=== PATIENT | male | born 1975 | race Caucasian/White ===

== ENCOUNTER 2020-03-25 16:59 | Inpatient (IN) | payer OTHER ==
[2020-03-25 18:41] VITALS: BMI 33.2
--- NOTE | 2020-03-25 18:52 | BHS.RME ---
Substance Use & Tx History - Substance Use History Alcohol Substance amount: 1 pint vodka, and 12 packs of beer. Frequency of use: Daily Substance route: Oral Date of Last Use: 03/24/20 Cocaine- Powder Substance amount: 6-7 bags Frequency of use: Daily Substance route: Injection (ex: intravenous or skin popping) Date of Last Use: 03/25/20 Heroin Substance amount: 8 bags Frequency of use: Daily Substance route: Injection (ex: intravenous or skin popping) Date of Last Use: 03/25/20 (overdosed yesterday, on daily methadone maintenace dose.) - Last Treatment Date of last treatment: first time in detox Where was last treatment: Opioid Treatment Program (OTP) (Patient on daily maintenance Methadone dose of 90mg. Last medicated today.) CIWA Nausea/Vomitin Muscle Tremors: 3 Anxiety: 3 Agitation: 2 Paroxysmal Sweats: 2 Orientation: 2-Disoriented Date<2 days Tacttile Disturbances: 0-None Auditory Disturbances: 0-None Visual Disturbances: 0-None Headache: 0-None Present CIWA-Ar Total Score: 14
[2020-03-25] MEDS ORDERED: ACETAMINOPHEN 325 MG TABLET (FP) PO PRN ×2 (19:03)
[2020-03-25] MEDS ORDERED: chlordiazePOXIDE HCL 10 MG CAPSULE PO PRN (19:03)
[2020-03-25] MEDS ORDERED: MENTHOL/PHENOL 1 EACH UD MM PRN (19:03)
[2020-03-25] MEDS ORDERED: MAGNESIUM CITRATE 300 ML BOTTLE PO PRN (19:03)
[2020-03-25] MEDS ORDERED: BISMUTH SUBSALICYLATE 524 MG/30 ML UD PO PRN (19:03)
[2020-03-25] MEDS ORDERED: METHOCARBAMOL 500 MG TABLET PO PRN (19:03)
[2020-03-25] MEDS ORDERED: IBUPROFEN 400 MG TABLET (FP) PO PRN (19:03)
[2020-03-25] MEDS ORDERED: ONDANSETRON *ODT* 4 MG TABLET SL ONE (19:03)
[2020-03-25] MEDS ORDERED: MAGNESIUM HYDROX 2400MG/30ML ORAL SUSPENSION 30 ML CUP PO PRN (19:03)
[2020-03-25] MEDS ORDERED: NICOTINE POLACRILEX 2 MG GUM BUC PRN (19:03)
[2020-03-25] MEDS ORDERED: MAG HYDROX/AL HYDROX/SIMETH 30 ML UNIT-DOSE CUP PO PRN (19:03)
--- NOTE | 2020-03-25 19:09 | HP ---
CIWA Score Nausea/Vomitin Muscle Tremors: 3 Anxiety: 3 Agitation: 2 Paroxysmal Sweats: 2 Orientation: 2-Disoriented Date<2 days Tacttile Disturbances: 0-None Auditory Disturbances: 0-None Visual Disturbances: 0-None Headache: 0-None Present CIWA-Ar Total Score: 14 - Admission Criteria OASAS Guidelines: Admission for Medically Managed Detox: Requires at least one of the followin. CIWA greater than 12 2. Seizures within the past 24 hours 3. Delirium tremens within the past 24 hours 4. Hallucinations within the past 24 hours 5. Acute intervention needed for co occurring medical disorder 6. Acute intervention needed for co occurring psychiatric disorder 7. Severe withdrawal that cannot be handled at a lower level of care (continued vomiting, continued diarrhea, abnormal vital signs) requiring intravenous medication and/or fluids 8. Admitting History and Physical - Primary Care Physician PCP: none (no PCP) - Admission Chief Complaint: i want detox. History of Present Illness: Mr. Burgess is 45 y/o male with past medical history of alcohol, heroin, cocaine and nicotine use disorder. First in here in [facility] for alcohol detox. Started drinking since age 31. 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 Patient also uses up to 7 bags of cocaine (IV). Denies any significant medical problems. Has testicular surgery in childhood. History Source: Patient Limitations to Obtaining History: No Limitations - Past Surgical History Past Surgical History: Yes: None Additional Past Surgical History: testicular surgery in childhood. - Smoking History Smoking history: Current every day smoker Have you smoked in the past 12 months: Yes Aproximately how many cigarettes per day: 20 - Alcohol/Substance Use Hx Alcohol Use: Yes Number of Drinks Daily: 12 History of Substance Use: reports: Cocaine, Heroin Date of Last Use: 03/24/20 - Social History Usual Living Arrangement: Yes: Alone Do you think of yourself as: Straight/Heterosexual ADL: Independent History of Recent Travel: No Admission ROS [facility] Chief Complaint: I want detox. Allergies/Adverse Reactions: Allergies Allergy/AdvReac Type Severity Reaction Status Date / Time No Known Allergies Allergy Verified 03/25/20 18:50 History of Present Illness: Mr. Burgess is 45 y/o male with past medical history of alcohol, heroin, cocaine and nicotine use disorder. First in here in [facility] for alcohol detox. Started drinking since age 31. 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 Patient also uses up to 7 bags of cocaine (IV). Denies any significant medical problems. Has testicular surgery in childhood. Exam Limitations: No Limitations - Ebola screening Have you traveled outside of the country in the last 21 days: No Have you had contact with anyone from an Ebola affected area: No Have you been sick,other than usual withdrawal symptoms: No Do you have a fever: No - Review of Systems Constitutional: No Symptoms Reported EENT: reports: No Symptoms Reported Respiratory: reports: No Symptoms reported Cardiac: reports: No Symptoms Reported GI: reports: No Symptoms Reported : reports: No Symptoms Reported Musculoskeletal: reports: No Symptoms Reported Integumentary: reports: No Symptoms Reported Neuro: reports: No Symptoms reported Endocrine: reports: No Symptoms Reported Hematology: reports: No Symptoms Reported Psychiatric: reports: Agitated, Anxious, Disorientated Patient History - Patient Medical History Hx Asthma: No Hx Chronic Obstructive Pulmonary Disease (COPD): No Hx Cardiac Disorders: No Hx Hypertension: No Hx Seizures: No Hx Diabetes: No Hx Gastrointestinal Disorders: No Hx Genitourinary Disorders: No Hx Sexually Transmitted Disorders: No Hx Renal Disease (ESRD): No Hx Depression: Yes Hx Suicide Attempt: No Hx Schizophrenia: No - Patient Surgical History Past Surgical History: No Hx Neurologic Surgery: No Hx Cataract Extraction: No Hx Cardiac Surgery: No Hx Lung Surgery: No Hx Breast Surgery: No Hx Breast Biopsy: No Hx Abdominal Surgery: No Hx Appendectomy: No Hx Cholecystectomy: No Hx Genitourinary Surgery: No Hx Section: No Hx Orthopedic Surgery: No Anesthesia Reaction: No - PPD History Previous Implant?: Yes Documented Results: Negative w/o proof - Smoking Cessation Smoking history: Current some day smoker Have you smoked in the past 12 months: Yes Aproximately how many cigarettes per day: 20 Hx Chewing Tobacco Use: No Initiated information on smoking cessation: Yes 'Breaking Loose' booklet given: 03/25/20 - Substances abused Alcohol Substance route: Oral Frequency: Daily Amount used: wine- 1 liter Age of first use: 45 Date of last use: 03/24/20 Heroin Substance route: Injection Frequency: Daily Amount used: 6 bags Age of first use: 31 Date of last use: 03/24/20 Cocaine Substance route: Injection Frequency: Daily Amount used: 30 bags Age of first use: 49 Date of last use: 03/24/20 Admission Physical Exam BHS - Vital Signs Vital Signs: Vital Signs - 24 hr 03/25/20 18:33 Temperature 97.4 F L Pulse Rate 60 Respiratory 18 Rate Blood Pressure 98/61 Vital Signs 03/25/20 18:33 Temperature 97.4 F L Pulse Rate 60 Respiratory 18 Rate Blood Pressure 98/61 - Physical General Appearance: Yes: Within Normal Limits, Tremorous, Sweating, Anxious HEENTM: Yes: Within Normal Limits Respiratory: Yes: Within Normal Limits Neck: Yes: Within Normal Limits Breast: Yes: Within Normal Limits Cardiology: Yes: Within Normal Limits, Regular Rhythm, Regular Rate, S1, S2 Abdominal: Yes: Within Normal Limits, Normal Bowel Sounds, Soft Genitourinary: Yes: Within Normal Limits Musculoskeletal: Yes: Within Normal Limits Extremities: Yes: Within Normal Limits, Normal Range of Motion Neurological: Yes: Within Normal Limits, Alert Integumentary: Yes: Dry, Warm (Multiple track tello on both arms.) Lymphatic: Yes: Within Normal Limits - Addiitonal Findings: EKG showed sinus bradycardia at 54. - Diagnostic (1) Alcohol use disorder Current Visit: Yes Status: Acute Breathalyzer - Breathalyzer Breathalyzer: 0 Urine Drug Screen - Test Device Lot number: [id number] Expiration date: 04/29/22 - Control Is test valid?: No - Results Drug screen NEGATIVE: No Urine drug screen results: THC-Marijuana, RORY-Cocaine, FEN-Fentanyl, MOP- Opiates, MTD-Methadone Inpatient Rehab Admission - Rehab Decision to Admit Inpatient rehab admission?: No
[2020-03-25] MEDS: chlordiazePOXIDE HCL 25 MG CAPSULE PO SCH (22:16)
[2020-03-25] MEDS: hydrOXYzine PAMOATE 25 MG CAPSULE (FP) PO SCH (22:16)
[2020-03-25] MEDS: THIAMINE HCL 100 MG TABLET (FP) PO SCH (22:17)
[2020-03-25] MEDS: MELATONIN 5 MG TABLETS PO SCH (22:17)
[2020-03-26] MEDS: chlordiazePOXIDE HCL 25 MG CAPSULE PO SCH ×3 (05:41→21:07)
[2020-03-26] MEDS: hydrOXYzine PAMOATE 25 MG CAPSULE (FP) PO SCH ×5 (05:41→21:07)
--- NOTE | 2020-03-26 08:42 | PN ---
S CIWA - CIWA Score Nausea/Vomitin-Mild Nausea/No Vomiting Muscle Tremors: 3 Anxiety: 3 Agitation: 1-Slight > Activity Paroxysmal Sweats: 1-Minimal Palms Moist Orientation: 0-Oriented Tacttile Disturbances: 1-Very Mild Itch/Numbness Auditory Disturbances: 0-None Visual Disturbances: 0-None Headache: 0-None Present CIWA-Ar Total Score: 10 BHS Progress Note (SOAP) Subjective: 45 years old male admitted on 03/25/20 for alcohol withdrawal sx management treating with librium detox regiment mr andrews will received methadone 90mg po today around 10 am and begin tomorrow around 6 am tremor feeling tired general body aches ate breakfast in room resting in bed limited conversation with staff Objective: 03/26/20 11:45 Vital Signs - 24 hr 03/25/20 03/25/20 03/26/20 18:33 19:15 06:40 Temperature 97.4 F L 97.5 F L 97.5 F L Pulse Rate 60 67 51 L Respiratory 18 18 18 Rate Blood Pressure 98/61 105/70 102/63 O2 Sat by Pulse 99 99 Oximetry (%) 03/26/20 08:32 Temperature 97.8 F Pulse Rate 69 Respiratory 18 Rate Blood Pressure 92/56 L O2 Sat by Pulse Oximetry (%) 03/26/20 11:46 lab pending Assessment: 03/26/20 11:46 alcohol withdrawal methadone maintenance program 03/26/20 11:46 added to problem list Plan: librium regiment
[2020-03-26] MEDS ORDERED: METHADONE HCL 10 MG TABLET ONE (09:19)
[2020-03-26] MEDS ORDERED: METHADONE HCL 40 MG DISPERSABLE TABLET ONE (09:21)
--- NOTE | 2020-03-26 09:24 | EKG ---
Test Reason : Blood Pressure : / mmHG Vent. Rate : 056 BPM Atrial Rate : 056 BPM P-R Int : 170 ms QRS Dur : 090 ms QT Int : 436 ms P-R-T Axes : 052 065 037 degrees QTc Int : 420 ms SINUS BRADYCARDIA OTHERWISE NORMAL ECG NO PREVIOUS ECGS AVAILABLE Confirmed by MD JEROMY, ARA ([id number]) on 03/26/2020 9:24:19 AM Referred By: JORGE Confirmed By:ARA PINZON MD
[2020-03-26] MEDS ORDERED: METHADONE HCL 10 MG TABLET PO ONE (10:00)
[2020-03-26] MEDS ORDERED: METHADONE 80 MG, METHADONE 10 MG PO ONE (10:00)
[2020-03-26] MEDS: NICOTINE 7 MG/24 HOURS TOPICAL PATCH TD SCH (10:20)
[2020-03-26] MEDS: PRENATAL VITAMINS W/ FOLIC ACID TABLET (FP) PO SCH (10:21)
[2020-03-26] MEDS: THIAMINE HCL 100 MG TABLET (FP) PO SCH (21:07)
[2020-03-26] MEDS: MELATONIN 5 MG TABLETS PO SCH (21:07)
[2020-03-27] MEDS ORDERED: METHADONE HCL 10 MG TABLET ONE (04:51)
[2020-03-27] MEDS ORDERED: METHADONE HCL 40 MG DISPERSABLE TABLET ONE (04:51)
[2020-03-27] MEDS: chlordiazePOXIDE 5 MG CAPSULE PO SCH ×3 (05:28→21:00)
[2020-03-27] MEDS: METHADONE 80 MG, METHADONE 10 MG PO SCH (05:28)
[2020-03-27] MEDS: hydrOXYzine PAMOATE 25 MG CAPSULE (FP) PO SCH ×5 (05:28→21:04)
[2020-03-27] MEDS ORDERED: METHADONE HCL 10 MG TABLET PO SCH (06:00)
--- NOTE | 2020-03-27 09:37 | PN ---
S CIWA - CIWA Score Nausea/Vomitin-Mild Nausea/No Vomiting Muscle Tremors: 2 Anxiety: 2 Agitation: 2 Paroxysmal Sweats: No Perspiration Orientation: 0-Oriented Tacttile Disturbances: 1-Very Mild Itch/Numbness Auditory Disturbances: 0-None Visual Disturbances: 0-None Headache: 1-Very Mild CIWA-Ar Total Score: 9 S Progress Note (SOAP) Subjective: alert,irritable,anxious,interrupted sleep,tremor,aching pain in the body and back Objective: 03/27/20 09:36 Vital Signs Temperature 97.5 F L 03/27/20 08:35 Pulse Rate 55 L 03/27/20 08:35 Respiratory Rate 18 03/27/20 08:35 Blood Pressure 97/60 03/27/20 08:35 O2 Sat by Pulse Oximetry (%) 97 03/27/20 05:42 03/27/20 09:37 labs pending Assessment: 03/27/20 09:37 withdrawal symptom Plan: continue detox librium regimen,continue methadone maintenance 90 mgs po daily
[2020-03-27] MEDS: NICOTINE 7 MG/24 HOURS TOPICAL PATCH TD SCH (09:59)
[2020-03-27] MEDS: PRENATAL VITAMINS W/ FOLIC ACID TABLET (FP) PO SCH (09:59)
[2020-03-27 11:15] LABS: HEMATOCRIT 34.9 % (35.4-49); HEMOGLOBIN 11.1 GM/dL (11.7-16.9); MCH 26.1 pg (25.7-33.7); MCHC 31.7 g/dl (32.0-35.9); MEAN CELL VOLUME 82.4 fl (80-96); PLATELET COUNT 203 K/MM3 (134-434); RBC 4.24 M/mm3 (4.00-5.60); RDW 14.9 % (11.9-15.9); WHITE BLOOD COUNT 4.1 K/mm3 (4.0-10.0)
[2020-03-27 11:22] LABS: ALBUMIN 2.5 g/dl (3.4-5.0); BILIRUBIN,TOTAL 0.7 mg/dL (0.2-1); BLOOD UREA NITROGEN 12.9 mg/dL (7-18); CALCIUM 8.1 mg/dL (8.5-10.1); CREATININE 0.8 mg/dL (0.55-1.3); POTASSIUM 3.6 mmol/L (3.5-5.1); TOT PROT 5.5 g/dl (6.4-8.2)
[2020-03-27 14:58] LABS: EPI CELLS 29 /uL (0-25.1); HYALINE CASTS 8 /uL (0-3.1); PH,URINE 5.5 (5.0-8.0); URINE APPEARANCE CLEAR; URINE BACTERIA 11 /uL (0-1359); URINE BILIRUBIN 1+ (NEGATIVE); URINE COLOR DK YELLOW; URINE GLUCOSE (UA) NEGATIVE (NEGATIVE); URINE KETONE TRACE (NEGATIVE); URINE LEUK ESTERASE TRACE (NEGATIVE); URINE NITRITE NEGATIVE (NEGATIVE); URINE PROTEIN TRACE (NEGATIVE); URINE RBC 16 /uL (0-23.9); URINE WBC 33 /uL (0-25.8)
[2020-03-27 15:41] LABS: URINE CRYSTALS CA OXALATES /hpf
[2020-03-27] MEDS: THIAMINE HCL 100 MG TABLET (FP) PO SCH (21:04)
[2020-03-27] MEDS: MELATONIN 5 MG TABLETS PO SCH (21:04)
[2020-03-28] MEDS ORDERED: chlordiazePOXIDE HCL 10 MG CAPSULE PO PRN
[2020-03-28] MEDS ORDERED: METHADONE HCL 10 MG TABLET ONE (04:50)
[2020-03-28] MEDS ORDERED: METHADONE HCL 40 MG DISPERSABLE TABLET ONE (04:50)
[2020-03-28] MEDS: hydrOXYzine PAMOATE 25 MG CAPSULE (FP) PO SCH ×5 (05:23→22:28)
[2020-03-28] MEDS: METHADONE 80 MG, METHADONE 10 MG PO SCH (05:23)
[2020-03-28] MEDS: chlordiazePOXIDE HCL 10 MG CAPSULE PO SCH ×3 (05:23→22:29)
[2020-03-28] MEDS: PRENATAL VITAMINS W/ FOLIC ACID TABLET (FP) PO SCH (11:15)
[2020-03-28] MEDS: NICOTINE 7 MG/24 HOURS TOPICAL PATCH TD SCH (11:15)
--- NOTE | 2020-03-28 12:23 | PN ---
S CIWA - CIWA Score Nausea/Vomitin-No Nausea/No Vomiting Muscle Tremors: 1-None Visible, but [place] Anxiety: 1-Mildly Anxious Agitation: 0-Normal Activity Paroxysmal Sweats: No Perspiration Orientation: 0-Oriented Tacttile Disturbances: 0-None Auditory Disturbances: 0-None Visual Disturbances: 1-Very Mild Sensitivity Headache: 0-None Present CIWA-Ar Total Score: 3 BHS Progress Note (SOAP) Subjective: 45 years old male admitted on 03/25/20 for alcohol withdrawal sx management treating with librium detox regiment feeling better today less tremor discussing aftercare with staff mr andrews prefers [facility] for alcohol recovery Objective: 03/28/20 12:25 Vital Signs - 24 hr 03/27/20 03/27/20 03/27/20 12:38 16:30 20:41 Temperature 98.6 F 97.5 F L 97.7 F Pulse Rate 71 50 L 59 L Respiratory 20 18 18 Rate Blood Pressure 97/62 98/63 95/65 O2 Sat by Pulse 98 100 Oximetry (%) 03/28/20 03/28/20 06:29 08:52 Temperature 97.3 F L 97.5 F L Pulse Rate 66 63 Respiratory 18 18 Rate Blood Pressure 102/61 89/61 L O2 Sat by Pulse 97 Oximetry (%) Laboratory Tests 03/25/20 03/27/20 03/27/20 19:00 08:00 08:00 WBC 4.1 RBC 4.24 Hgb 11.1 L Hct 34.9 L MCV 82.4 MCH 26.1 MCHC 31.7 L RDW 14.9 Plt Count 203 MPV 10.0 Sodium Potassium Chloride Carbon Dioxide Anion Gap BUN Creatinine Est GFR (CKD-EPI)AfAm Est GFR (CKD-EPI)NonAf Random Glucose Calcium Total Bilirubin AST ALT Alkaline Phosphatase Total Protein Albumin Urine Color Urine Appearance Urine pH Ur Specific [place] Urine Protein Urine Glucose (UA) Urine Ketones Urine Blood Urine Nitrite Urine Bilirubin Urine Urobilinogen Ur Leukocyte Esterase Urine WBC (Auto) Urine RBC (Auto) Urine Casts (Auto) U Epithel Cells (Auto) Urine Crystals (Auto) Urine Bacteria (Auto) Syphilis Serology Non-reactive COVID-19 (ERIC) Not detected 03/27/20 03/27/20 08:30 10:50 WBC RBC Hgb Hct MCV MCH MCHC RDW Plt Count MPV Sodium 143 Potassium 3.6 Chloride 108 H Carbon Dioxide 28 Anion Gap 6 L BUN 12.9 Creatinine 0.8 Est GFR (CKD-EPI)AfAm 125.92 Est GFR (CKD-EPI)NonAf 108.65 Random Glucose 96 Calcium 8.1 L Total Bilirubin 0.7 AST 18 ALT 22 Alkaline Phosphatase 39 L Total Protein 5.5 L Albumin 2.5 L Urine Color Dk yellow Urine Appearance Clear Urine pH 5.5 Ur Specific [place] 1.035 Urine Protein Trace Urine Glucose (UA) Negative Urine Ketones Trace H Urine Blood Negative Urine Nitrite Negative Urine Bilirubin 1+ H Urine Urobilinogen 1.0 Ur Leukocyte Esterase Trace Urine WBC (Auto) 33 Urine RBC (Auto) 16 Urine Casts (Auto) 8 U Epithel Cells (Auto) 29 Urine Crystals (Auto) Ca oxalates Urine Bacteria (Auto) 11 Syphilis Serology COVID-19 (ERIC) 03/28/20 12:27 urine crystals + with rbc 16 Assessment: 03/28/20 12:27 alcohol withdrawal 03/28/20 12:28 rule out kidney stone Plan: librium regiment oral fluid
[2020-03-28] MEDS: MELATONIN 5 MG TABLETS PO SCH (22:28)
[2020-03-28] MEDS: THIAMINE HCL 100 MG TABLET (FP) PO SCH (22:28)
[2020-03-29] MEDS ORDERED: METHADONE HCL 10 MG TABLET ONE (03:15)
[2020-03-29] MEDS ORDERED: METHADONE HCL 40 MG DISPERSABLE TABLET ONE (03:16)
[2020-03-29] MEDS ORDERED: chlordiazePOXIDE HCL 10 MG CAPSULE PO ONE (05:00)
[2020-03-29] MEDS: METHADONE 80 MG, METHADONE 10 MG PO SCH (05:18)
[2020-03-29] MEDS: hydrOXYzine PAMOATE 25 MG CAPSULE (FP) PO SCH ×2 (05:18→09:41)
[2020-03-29 09:17] VITALS: BP 86/55; PULSE 57; TEMP 97.8
[2020-03-29] MEDS: PRENATAL VITAMINS W/ FOLIC ACID TABLET (FP) PO SCH (09:40)
[2020-03-29] MEDS: NICOTINE 7 MG/24 HOURS TOPICAL PATCH TD SCH (09:40)
--- NOTE | 2020-03-29 09:56 | PN ---
[facility] CIWA - CIWA Score Nausea/Vomitin-No Nausea/No Vomiting Muscle Tremors: None Anxiety: 1-Mildly Anxious Agitation: 0-Normal Activity Paroxysmal Sweats: No Perspiration Orientation: 0-Oriented Tacttile Disturbances: 0-None Auditory Disturbances: 0-None Visual Disturbances: 0-None Headache: 0-None Present CIWA-Ar Total Score: 1 S Progress Note (SOAP) Subjective: alert,no complaint Objective: 03/29/20 09:55 Vital Signs Temperature 97.8 F 03/29/20 08:48 Pulse Rate 57 L 03/29/20 08:48 Respiratory Rate 18 03/29/20 08:48 Blood Pressure 86/55 L 03/29/20 08:48 O2 Sat by Pulse Oximetry (%) 97 03/29/20 06:28 Assessment: 03/29/20 09:55 detox completed,no withdrawal symptom Plan: stable for discharge today,follow up with after care program as arrangement [facility]
--- NOTE | 2020-03-29 09:59 | DS ---
[facility] Detox Discharge Summary Admission Date: 03/25/20 Discharge Date: 03/29/20 - History Present History: Alcohol Dependence, Cocaine Dependence, Opioid Dependence, MMTP Additional Comments: alert,oriented x 3 ambulation on the unit lung clear bilaterally on auscultation abdomen soft,no distension,no pain detox completed,no withdrawal symptom stable for discharge today,follow up with [facility] total time spending on discharge 35 minutes Pertinent Past History: nicotine dependence - Physical Exam Results Vital Signs: Vital Signs Temperature 97.8 F 03/29/20 08:48 Pulse Rate 57 L 03/29/20 08:48 Respiratory Rate 18 03/29/20 08:48 Blood Pressure 86/55 L 03/29/20 08:48 O2 Sat by Pulse Oximetry (%) 97 03/29/20 06:28 Pertinent Admission Physical Exam Findings: withdrawal signs and symptom Vital Signs Temperature 97.8 F 03/29/20 08:48 Pulse Rate 57 L 03/29/20 08:48 Respiratory Rate 18 03/29/20 08:48 Blood Pressure 86/55 L 03/29/20 08:48 O2 Sat by Pulse Oximetry (%) 97 03/29/20 06:28 Laboratory Last Values WBC 4.1 K/mm3 (4.0-10.0) 03/27/20 08:00 RBC 4.24 M/mm3 (4.00-5.60) 03/27/20 08:00 Hgb 11.1 GM/dL (11.7-16.9) L 03/27/20 08:00 Hct 34.9 % (35.4-49) L 03/27/20 08:00 MCV 82.4 fl (80-96) 03/27/20 08:00 MCH 26.1 pg (25.7-33.7) 03/27/20 08:00 MCHC 31.7 g/dl (32.0-35.9) L 03/27/20 08:00 RDW 14.9 % (11.9-15.9) 03/27/20 08:00 Plt Count 203 K/MM3 (134-434) 03/27/20 08:00 MPV 10.0 fl (7.5-11.1) 03/27/20 08:00 Sodium 143 mmol/L (136-145) 03/27/20 08:30 Potassium 3.6 mmol/L (3.5-5.1) 03/27/20 08:30 Chloride 108 mmol/L (98-107) H 03/27/20 08:30 Carbon Dioxide 28 mmol/L (21-32) 03/27/20 08:30 Anion Gap 6 MMOL/L (8-16) L 03/27/20 08:30 BUN 12.9 mg/dL (7-18) 03/27/20 08:30 Creatinine 0.8 mg/dL (0.55-1.3) 03/27/20 08:30 Est GFR (CKD-EPI)AfAm 125.92 03/27/20 08:30 Est GFR (CKD-EPI)NonAf 108.65 03/27/20 08:30 Random Glucose 96 mg/dL (74-106) 03/27/20 08:30 Calcium 8.1 mg/dL (8.5-10.1) L 03/27/20 08:30 Total Bilirubin 0.7 mg/dL (0.2-1) 03/27/20 08:30 AST 18 U/L (15-37) 03/27/20 08:30 ALT 22 U/L (13-61) 03/27/20 08:30 Alkaline Phosphatase 39 U/L (45-117) L 03/27/20 08:30 Total Protein 5.5 g/dl (6.4-8.2) L 03/27/20 08:30 Albumin 2.5 g/dl (3.4-5.0) L 03/27/20 08:30 Urine Color Dk yellow 03/27/20 10:50 Urine Appearance Clear 03/27/20 10:50 Urine pH 5.5 (5.0-8.0) 03/27/20 10:50 Ur Specific [place] 1.035 (1.010-1.035) 03/27/20 10:50 Urine Protein Trace (NEGATIVE) 03/27/20 10:50 Urine Glucose (UA) Negative (NEGATIVE) 03/27/20 10:50 Urine Ketones Trace (NEGATIVE) H 03/27/20 10:50 Urine Blood Negative (NEGATIVE) 03/27/20 10:50 Urine Nitrite Negative (NEGATIVE) 03/27/20 10:50 Urine Bilirubin 1+ (NEGATIVE) H 03/27/20 10:50 Urine Urobilinogen 1.0 mg/dL (0.2-1.0) 03/27/20 10:50 Ur Leukocyte Esterase Trace (NEGATIVE) 03/27/20 10:50 Urine WBC (Auto) 33 /uL (0-25.8) 03/27/20 10:50 Urine RBC (Auto) 16 /uL (0-23.9) 03/27/20 10:50 Urine Casts (Auto) 8 /uL (0-3.1) 03/27/20 10:50 U Epithel Cells (Auto) 29 /uL (0-25.1) 03/27/20 10:50 Urine Crystals (Auto) Ca oxalates /hpf 03/27/20 10:50 Urine Bacteria (Auto) 11 /uL (0-1359) 03/27/20 10:50 Syphilis Serology Non-reactive (NONREACTIVE) 03/27/20 08:00 COVID-19 (ERIC) Not detected (Not Detected) 03/25/20 19:00 - Treatment Hospital Course: Detox Protocol Followed, Detoxed Safely, Responded well, Discharged Condition Good, Rehab Referral Accepted Patient has Accepted a Rehab Referral to: [facility] - Medication Discharge Medications: Ambulatory Orders NK [No Known Home Medication] 03/25/20 - Diagnosis (1) Alcohol dependence with uncomplicated withdrawal Current Visit: Yes Status: Acute (2) Cocaine dependence Current Visit: Yes Status: Acute (3) Methadone maintenance therapy patient Current Visit: Yes Status: Acute (4) Heroin abuse Current Visit: Yes Status: Acute (5) Nicotine dependence Current Visit: Yes Status: Acute - AMA Did Patient Leave Against Medical Advice: No
== END 2020-03-29 10:55 | disposition other institution (70) | DRG 773 ==
LOC: YASAS 16:59 → Y3N 18:58
PROVIDERS: ADMIT Allergy & Immunology; ATTEND Allergy & Immunology
PROC: HZ2ZZZZ Detoxification Services for Substance Abuse Treatment (ICD-10-PCS; principal; 2020-03-25)
DX: F10.230 Alcohol dependence with withdrawal, uncomplicated (principal); F11.20 Opioid dependence, uncomplicated; F14.20 Cocaine dependence, uncomplicated; F17.210 Nicotine dependence, cigarettes, uncomplicated; R82.998 Other abnormal findings in urine
CPT/HCPCS: 36415; 80053; 81003; 85027; 86780; 93005; 93010; Q0162; U0003

== ENCOUNTER 2020-03-29 11:11 | Inpatient (IN) | payer OTHER ==
[2020-03-29] MEDS ORDERED: PNEUMOC 13-VAL CONJ-DIP CRM/PF 0.5 ML DISP.SYRIN IM ONE (12:19)
[2020-03-29] MEDS ORDERED: MAGNESIUM HYDROX 2400MG/30ML ORAL SUSPENSION 30 ML CUP PO PRN (12:57)
[2020-03-29] MEDS ORDERED: MAGNESIUM CITRATE 300 ML BOTTLE PO PRN (12:57)
[2020-03-29] MEDS ORDERED: P-EPHED 60MG/TRIPROLIDI 2.5MG TABLET PO PRN (12:57)
[2020-03-29] MEDS ORDERED: guaiFENesin 200 MG/10 ML 10 ML UNIT-DOSE CUPS PO PRN (12:57)
[2020-03-29] MEDS ORDERED: MENTHOL/PHENOL 1 EACH UD MM PRN (12:57)
[2020-03-29] MEDS ORDERED: MAG HYDROX/AL HYDROX/SIMETH 30 ML UNIT-DOSE CUP PO PRN (12:57)
[2020-03-29] MEDS ORDERED: IBUPROFEN 400 MG TABLET (FP) PO PRN (12:57)
[2020-03-29] MEDS ORDERED: LOPERAMIDE HCL 2 MG CAPSULE PO PRN (12:57)
[2020-03-29] MEDS ORDERED: ACETAMINOPHEN 325 MG TABLET (FP) PO PRN (12:57)
--- NOTE | 2020-03-29 12:57 | HP ---
[facility] Rehab Assess/Revision - Admission History Admitted to Rehab from: [facility] Date of Admission to Rehab: 03/29/2020 - Vital signs Vital Signs: Vital Signs Period Temp Pulse Resp BP Sys/Nolen Pulse Ox Last 24 Hr 97.1 F 60 16 97/56 - Findings Detox History & Physical reviewed: Yes Concur with findings: Yes Comments/Additional Findings: for rehab as protocol Inpatient Rehab Admission - Rehab Decision to Admit Inpatient rehab admission?: Yes - Initial Determination Are CD services needed?: Yes Free of communicable disease: Yes Not in need of hospitalization: Yes - Rehab Admission Criteria Previous failed treatment: Yes Poor recovery environment: Yes Comorbidities: Yes Lacks judgement: No Patient is meeting Inpatient Rehab admission criteria:: Yes
[2020-03-29] MEDS: hydrOXYzine PAMOATE 25 MG CAPSULE (FP) PO SCH ×3 (14:03→21:19)
[2020-03-29] MEDS: THIAMINE HCL 100 MG TABLET (FP) PO SCH (21:19)
[2020-03-29] MEDS: MELATONIN 5 MG TABLETS PO SCH (21:19)
[2020-03-30] MEDS ORDERED: METHADONE HCL 10 MG TABLET ONE (05:40)
[2020-03-30] MEDS ORDERED: METHADONE HCL 40 MG DISPERSABLE TABLET ONE (05:40)
[2020-03-30] MEDS ORDERED: METHADONE HCL 40 MG DISPERSABLE TABLET PO SCH (06:00)
[2020-03-30] MEDS: hydrOXYzine PAMOATE 25 MG CAPSULE (FP) PO SCH ×5 (06:17→21:33)
[2020-03-30] MEDS: METHADONE 80 MG, METHADONE 10 MG PO SCH (06:17)
[2020-03-30] MEDS: NICOTINE 7 MG/24 HOURS TOPICAL PATCH TD SCH (09:55)
[2020-03-30] MEDS: PRENATAL VITAMINS W/ FOLIC ACID TABLET (FP) PO SCH (09:55)
[2020-03-30] MEDS ORDERED: PNEUMOCOCCAL 23 VACCINE 0.5 ML VIAL IM ONE (12:00)
[2020-03-30] MEDS ORDERED: PT OWN MED DRAWER 7, Y5N ONE (14:13)
[2020-03-30] MEDS: MELATONIN 5 MG TABLETS PO SCH (21:33)
[2020-03-30] MEDS: THIAMINE HCL 100 MG TABLET (FP) PO SCH (21:33)
[2020-03-31] MEDS ORDERED: METHADONE HCL 10 MG TABLET ONE (05:39)
[2020-03-31] MEDS ORDERED: METHADONE HCL 40 MG DISPERSABLE TABLET ONE (05:40)
[2020-03-31] MEDS: METHADONE 80 MG, METHADONE 10 MG PO SCH (06:08)
[2020-03-31] MEDS: hydrOXYzine PAMOATE 25 MG CAPSULE (FP) PO SCH ×5 (06:08→21:03)
[2020-03-31] MEDS: PRENATAL VITAMINS W/ FOLIC ACID TABLET (FP) PO SCH (09:52)
[2020-03-31] MEDS: NICOTINE 7 MG/24 HOURS TOPICAL PATCH TD SCH (09:52)
[2020-03-31] MEDS: THIAMINE HCL 100 MG TABLET (FP) PO SCH (21:03)
[2020-03-31] MEDS: MELATONIN 5 MG TABLETS PO SCH (21:03)
[2020-04-01] MEDS ORDERED: METHADONE HCL 40 MG DISPERSABLE TABLET ONE (03:09)
[2020-04-01] MEDS ORDERED: METHADONE HCL 10 MG TABLET ONE (03:09)
[2020-04-01] MEDS: hydrOXYzine PAMOATE 25 MG CAPSULE (FP) PO SCH ×5 (06:04→21:26)
[2020-04-01] MEDS: METHADONE 80 MG, METHADONE 10 MG PO SCH (06:04)
[2020-04-01] MEDS: NICOTINE 7 MG/24 HOURS TOPICAL PATCH TD SCH (09:51)
[2020-04-01] MEDS: PRENATAL VITAMINS W/ FOLIC ACID TABLET (FP) PO SCH (09:52)
[2020-04-01] MEDS: THIAMINE HCL 100 MG TABLET (FP) PO SCH (21:25)
[2020-04-01] MEDS: MELATONIN 5 MG TABLETS PO SCH (21:25)
[2020-04-02] MEDS ORDERED: METHADONE HCL 40 MG DISPERSABLE TABLET ONE (03:24)
[2020-04-02] MEDS ORDERED: METHADONE HCL 10 MG TABLET ONE (03:24)
[2020-04-02] MEDS: hydrOXYzine PAMOATE 25 MG CAPSULE (FP) PO SCH ×5 (06:23→21:04)
[2020-04-02] MEDS: METHADONE 80 MG, METHADONE 10 MG PO SCH (06:23)
[2020-04-02] MEDS: PRENATAL VITAMINS W/ FOLIC ACID TABLET (FP) PO SCH (10:14)
[2020-04-02] MEDS: NICOTINE 7 MG/24 HOURS TOPICAL PATCH TD SCH (10:14)
[2020-04-02] MEDS ORDERED: ACETAMINOPHEN 325 MG TABLET (FP) PO PRN ×2 (14:35→14:36)
--- NOTE | 2020-04-02 14:42 | PN ---
S Progress Note Note: Patient cc/o lower back pain. States it just started, denies injury. Took motrin with limited results. Found lying in bed on right side. Vital Signs Period Temp Pulse Resp BP Sys/Nolen Pulse Ox Last 24 Hr 97.6 F-98.2 F 58 18 113/68 95-97 P/E: General: appears to be in pain Neck: supple ABD: +BS, obese MSK: full weight bearing BACK: tender to palpation A/P Increased motrin added Lidoderm patch and muscle relaxant Will continue to monitor
[2020-04-02] MEDS: LIDOCAINE 5% TOPICAL PATCH TP SCH (15:01)
[2020-04-02] MEDS: METHOCARBAMOL 500 MG TABLET PO SCH ×2 (18:08→21:04)
[2020-04-02] MEDS: THIAMINE HCL 100 MG TABLET (FP) PO SCH (21:04)
[2020-04-02] MEDS: MELATONIN 5 MG TABLETS PO SCH (21:04)
[2020-04-02] MEDS: LIDOCAINE PATCH REMOVAL MC SCH (21:04)
[2020-04-02] MEDS: NICOTINE POLACRILEX 2 MG GUM BUC PRN (21:42)
[2020-04-03] MEDS ORDERED: METHADONE HCL 10 MG TABLET ONE (05:37)
[2020-04-03] MEDS ORDERED: METHADONE HCL 40 MG DISPERSABLE TABLET ONE (05:37)
[2020-04-03] MEDS: METHADONE 80 MG, METHADONE 10 MG PO SCH (05:59)
[2020-04-03] MEDS: hydrOXYzine PAMOATE 25 MG CAPSULE (FP) PO SCH ×5 (05:59→21:44)
[2020-04-03] MEDS: NICOTINE POLACRILEX 2 MG GUM BUC PRN ×2 (06:19→10:05)
[2020-04-03] MEDS: LIDOCAINE 5% TOPICAL PATCH TP SCH (10:02)
[2020-04-03] MEDS: PRENATAL VITAMINS W/ FOLIC ACID TABLET (FP) PO SCH (10:02)
[2020-04-03] MEDS: NICOTINE 7 MG/24 HOURS TOPICAL PATCH TD SCH (10:02)
[2020-04-03] MEDS: METHOCARBAMOL 500 MG TABLET PO SCH ×4 (10:03→21:44)
[2020-04-03] MEDS: THIAMINE HCL 100 MG TABLET (FP) PO SCH (21:44)
[2020-04-03] MEDS: MELATONIN 5 MG TABLETS PO SCH (21:44)
[2020-04-03] MEDS: LIDOCAINE PATCH REMOVAL MC SCH (21:45)
[2020-04-04] MEDS ORDERED: METHADONE HCL 10 MG TABLET ONE (05:40)
[2020-04-04] MEDS ORDERED: METHADONE HCL 40 MG DISPERSABLE TABLET ONE (05:40)
[2020-04-04] MEDS: METHADONE 80 MG, METHADONE 10 MG PO SCH (06:24)
[2020-04-04] MEDS: hydrOXYzine PAMOATE 25 MG CAPSULE (FP) PO SCH ×5 (06:24→21:03)
[2020-04-04] MEDS: METHOCARBAMOL 500 MG TABLET PO SCH ×4 (09:46→21:02)
[2020-04-04] MEDS: NICOTINE POLACRILEX 2 MG GUM BUC PRN ×2 (09:46→21:03)
[2020-04-04] MEDS: LIDOCAINE 5% TOPICAL PATCH TP SCH (09:47)
[2020-04-04] MEDS: PRENATAL VITAMINS W/ FOLIC ACID TABLET (FP) PO SCH (09:47)
[2020-04-04] MEDS: NICOTINE 7 MG/24 HOURS TOPICAL PATCH TD SCH (09:47)
[2020-04-04] MEDS: MELATONIN 5 MG TABLETS PO SCH (21:02)
[2020-04-04] MEDS: THIAMINE HCL 100 MG TABLET (FP) PO SCH (21:02)
[2020-04-04] MEDS: LIDOCAINE PATCH REMOVAL MC SCH (21:03)
[2020-04-05] MEDS ORDERED: METHADONE HCL 10 MG TABLET ONE (05:38)
[2020-04-05] MEDS ORDERED: METHADONE HCL 40 MG DISPERSABLE TABLET ONE (05:39)
[2020-04-05] MEDS: METHADONE 80 MG, METHADONE 10 MG PO SCH (06:06)
[2020-04-05] MEDS: hydrOXYzine PAMOATE 25 MG CAPSULE (FP) PO SCH (06:07)
--- NOTE | 2020-04-05 09:02 | PN ---
[facility] Progress Note Note: Patient evaluated for Left lower leg swelling. He denies any recent injury to extremity and states swelling has happened before prior to admission to [facility]. He states " they gave me water pill for the swelling". Patient admitted to rehab for opiod/etoh dependence. No PMH of HTN noted. Ambulatory Orders NK [No Known Home Medication] 03/25/20 Laboratory Tests 03/30/20 06:00 HIV Ag/Ab Combo Qual Negative Vital Signs Temperature 98.4 F 04/05/20 06:08 Pulse Rate 54 L 04/05/20 06:08 Respiratory Rate 18 04/05/20 06:08 Blood Pressure 104/60 04/05/20 06:08 O2 Sat by Pulse Oximetry (%) 99 04/05/20 06:52 PE alert and oriented x 3 skin warm and dry in nad neck supple no jvd ext RLE +trace pedal edema LLE with +2 pitting pedal edema which extends to Left lower calf area. No calf redness or swelling noted A/P LLE edema Will order HCTZ 12.5 mg daily x 7 days leg elevation encouraged refused PAVAN stockings monitor clinically
[2020-04-05] MEDS: LIDOCAINE 5% TOPICAL PATCH TP SCH (10:31)
[2020-04-05] MEDS: hydrOXYzine PAMOATE 25 MG CAPSULE (FP) PO PRN (10:31)
[2020-04-05] MEDS: PRENATAL VITAMINS W/ FOLIC ACID TABLET (FP) PO SCH (10:31)
[2020-04-05] MEDS: METHOCARBAMOL 500 MG TABLET PO SCH ×4 (10:31→22:03)
[2020-04-05] MEDS: HYDROCHLOROTHIAZIDE 12.5 MG CAPSULE (FP) PO SCH (10:33)
[2020-04-05] MEDS: NICOTINE 7 MG/24 HOURS TOPICAL PATCH TD SCH (10:33)
[2020-04-05] MEDS: NICOTINE POLACRILEX 2 MG GUM BUC PRN ×2 (10:58→19:00)
[2020-04-05] MEDS: LIDOCAINE PATCH REMOVAL MC SCH (22:02)
[2020-04-05] MEDS: MELATONIN 5 MG TABLETS PO SCH (22:02)
[2020-04-05] MEDS: THIAMINE HCL 100 MG TABLET (FP) PO SCH (22:02)
[2020-04-06] MEDS ORDERED: METHADONE HCL 40 MG DISPERSABLE TABLET ONE (03:16)
[2020-04-06] MEDS ORDERED: METHADONE HCL 10 MG TABLET ONE (03:16)
[2020-04-06] MEDS ORDERED: METHADONE 80 MG, METHADONE 10 MG PO SCH (06:00)
[2020-04-06] MEDS: METHADONE 80 MG, METHADONE 10 MG PO SCH (06:16)
[2020-04-06] MEDS: PRENATAL VITAMINS W/ FOLIC ACID TABLET (FP) PO SCH (09:33)
[2020-04-06] MEDS: HYDROCHLOROTHIAZIDE 12.5 MG CAPSULE (FP) PO SCH (09:33)
[2020-04-06] MEDS: NICOTINE 7 MG/24 HOURS TOPICAL PATCH TD SCH (09:33)
[2020-04-06] MEDS: LIDOCAINE 5% TOPICAL PATCH TP SCH (09:33)
[2020-04-06] MEDS: METHOCARBAMOL 500 MG TABLET PO SCH ×4 (09:33→21:04)
[2020-04-06] MEDS: NICOTINE POLACRILEX 2 MG GUM BUC PRN ×2 (09:34→21:05)
[2020-04-06] MEDS: THIAMINE HCL 100 MG TABLET (FP) PO SCH (21:04)
[2020-04-06] MEDS: LIDOCAINE PATCH REMOVAL MC SCH (21:04)
[2020-04-06] MEDS: hydrOXYzine PAMOATE 25 MG CAPSULE (FP) PO PRN (21:04)
[2020-04-06] MEDS: MELATONIN 5 MG TABLETS PO SCH (21:04)
[2020-04-07] MEDS ORDERED: METHADONE HCL 10 MG TABLET ONE (03:22)
[2020-04-07] MEDS ORDERED: METHADONE HCL 40 MG DISPERSABLE TABLET ONE (03:22)
[2020-04-07] MEDS: METHADONE 80 MG, METHADONE 10 MG PO SCH (06:40)
[2020-04-07] MEDS: PRENATAL VITAMINS W/ FOLIC ACID TABLET (FP) PO SCH (09:46)
[2020-04-07] MEDS: LIDOCAINE 5% TOPICAL PATCH TP SCH (09:46)
[2020-04-07] MEDS: NICOTINE POLACRILEX 2 MG GUM BUC PRN ×3 (09:47→16:26)
[2020-04-07] MEDS: NICOTINE 7 MG/24 HOURS TOPICAL PATCH TD SCH (09:47)
[2020-04-07] MEDS: HYDROCHLOROTHIAZIDE 12.5 MG CAPSULE (FP) PO SCH (09:47)
[2020-04-07] MEDS: METHOCARBAMOL 500 MG TABLET PO SCH ×4 (09:47→21:37)
[2020-04-07] MEDS: MELATONIN 5 MG TABLETS PO SCH (21:37)
[2020-04-07] MEDS: THIAMINE HCL 100 MG TABLET (FP) PO SCH (21:37)
[2020-04-07] MEDS: hydrOXYzine PAMOATE 25 MG CAPSULE (FP) PO PRN (21:37)
[2020-04-07] MEDS: LIDOCAINE PATCH REMOVAL MC SCH (21:37)
[2020-04-08] MEDS ORDERED: METHADONE HCL 40 MG DISPERSABLE TABLET ONE (05:36)
[2020-04-08] MEDS ORDERED: METHADONE HCL 10 MG TABLET ONE (05:36)
[2020-04-08] MEDS: METHADONE 80 MG, METHADONE 10 MG PO SCH (06:03)
[2020-04-08] MEDS: hydrOXYzine PAMOATE 25 MG CAPSULE (FP) PO PRN ×2 (10:28→14:08)
[2020-04-08] MEDS: LIDOCAINE 5% TOPICAL PATCH TP SCH (10:28)
[2020-04-08] MEDS: PRENATAL VITAMINS W/ FOLIC ACID TABLET (FP) PO SCH (10:28)
[2020-04-08] MEDS: METHOCARBAMOL 500 MG TABLET PO SCH ×4 (10:28→21:06)
[2020-04-08] MEDS: NICOTINE 7 MG/24 HOURS TOPICAL PATCH TD SCH (10:28)
[2020-04-08] MEDS: HYDROCHLOROTHIAZIDE 12.5 MG CAPSULE (FP) PO SCH (10:28)
[2020-04-08] MEDS: NICOTINE POLACRILEX 2 MG GUM BUC PRN ×3 (10:30→21:07)
[2020-04-08] MEDS: THIAMINE HCL 100 MG TABLET (FP) PO SCH (21:06)
[2020-04-08] MEDS: MELATONIN 5 MG TABLETS PO SCH (21:06)
[2020-04-08] MEDS: LIDOCAINE PATCH REMOVAL MC SCH (21:06)
[2020-04-09] MEDS ORDERED: METHADONE HCL 10 MG TABLET ONE (05:34)
[2020-04-09] MEDS ORDERED: METHADONE HCL 40 MG DISPERSABLE TABLET ONE (05:35)
[2020-04-09] MEDS: METHADONE 80 MG, METHADONE 10 MG PO SCH (06:37)
[2020-04-09] MEDS: NICOTINE POLACRILEX 2 MG GUM BUC PRN ×4 (10:23→21:36)
[2020-04-09] MEDS: METHOCARBAMOL 500 MG TABLET PO SCH ×4 (10:23→21:36)
[2020-04-09] MEDS: hydrOXYzine PAMOATE 25 MG CAPSULE (FP) PO PRN ×3 (10:23→18:14)
[2020-04-09] MEDS: PRENATAL VITAMINS W/ FOLIC ACID TABLET (FP) PO SCH (10:23)
[2020-04-09] MEDS: LIDOCAINE 5% TOPICAL PATCH TP SCH (10:24)
[2020-04-09] MEDS: NICOTINE 7 MG/24 HOURS TOPICAL PATCH TD SCH (10:24)
[2020-04-09] MEDS: HYDROCHLOROTHIAZIDE 12.5 MG CAPSULE (FP) PO SCH (10:24)
[2020-04-09] MEDS: THIAMINE HCL 100 MG TABLET (FP) PO SCH (21:36)
[2020-04-09] MEDS: LIDOCAINE PATCH REMOVAL MC SCH (21:36)
[2020-04-09] MEDS: MELATONIN 5 MG TABLETS PO SCH (21:36)
[2020-04-10] MEDS ORDERED: METHADONE HCL 10 MG TABLET ONE (05:33)
[2020-04-10] MEDS ORDERED: METHADONE HCL 40 MG DISPERSABLE TABLET ONE (05:34)
[2020-04-10] MEDS: METHADONE 80 MG, METHADONE 10 MG PO SCH (06:31)
[2020-04-10] MEDS: PRENATAL VITAMINS W/ FOLIC ACID TABLET (FP) PO SCH (09:58)
[2020-04-10] MEDS: NICOTINE 7 MG/24 HOURS TOPICAL PATCH TD SCH (09:59)
[2020-04-10] MEDS: hydrOXYzine PAMOATE 25 MG CAPSULE (FP) PO PRN ×3 (09:59→21:13)
[2020-04-10] MEDS: METHOCARBAMOL 500 MG TABLET PO SCH ×4 (09:59→21:14)
[2020-04-10] MEDS: LIDOCAINE 5% TOPICAL PATCH TP SCH (09:59)
[2020-04-10] MEDS: HYDROCHLOROTHIAZIDE 12.5 MG CAPSULE (FP) PO SCH (09:59)
[2020-04-10] MEDS: NICOTINE POLACRILEX 2 MG GUM BUC PRN ×3 (10:00→21:14)
[2020-04-10] MEDS: THIAMINE HCL 100 MG TABLET (FP) PO SCH (21:13)
[2020-04-10] MEDS: MELATONIN 5 MG TABLETS PO SCH (21:14)
[2020-04-10] MEDS: LIDOCAINE PATCH REMOVAL MC SCH (21:14)
[2020-04-11] MEDS ORDERED: METHADONE HCL 40 MG DISPERSABLE TABLET ONE (05:54)
[2020-04-11] MEDS ORDERED: METHADONE HCL 10 MG TABLET ONE (05:54)
[2020-04-11] MEDS: METHADONE 80 MG, METHADONE 10 MG PO SCH (06:19)
[2020-04-11] MEDS: PRENATAL VITAMINS W/ FOLIC ACID TABLET (FP) PO SCH (10:00)
[2020-04-11] MEDS: HYDROCHLOROTHIAZIDE 12.5 MG CAPSULE (FP) PO SCH (10:00)
[2020-04-11] MEDS: METHOCARBAMOL 500 MG TABLET PO SCH ×4 (10:00→21:21)
[2020-04-11] MEDS: NICOTINE 7 MG/24 HOURS TOPICAL PATCH TD SCH (10:00)
[2020-04-11] MEDS: LIDOCAINE 5% TOPICAL PATCH TP SCH (10:01)
[2020-04-11] MEDS: hydrOXYzine PAMOATE 25 MG CAPSULE (FP) PO PRN ×3 (10:02→21:21)
[2020-04-11] MEDS: NICOTINE POLACRILEX 2 MG GUM BUC PRN ×2 (10:03→14:30)
[2020-04-11] MEDS ORDERED: PT OWN MED DRAWER 7, Y5N ONE (18:32)
[2020-04-11] MEDS: THIAMINE HCL 100 MG TABLET (FP) PO SCH (21:21)
[2020-04-11] MEDS: MELATONIN 5 MG TABLETS PO SCH (21:21)
[2020-04-11] MEDS: LIDOCAINE PATCH REMOVAL MC SCH (21:21)
[2020-04-12] MEDS ORDERED: METHADONE HCL 40 MG DISPERSABLE TABLET ONE (05:37)
[2020-04-12] MEDS ORDERED: METHADONE HCL 10 MG TABLET ONE (05:37)
[2020-04-12] MEDS: METHADONE 80 MG, METHADONE 10 MG PO SCH (06:12)
[2020-04-12] MEDS ORDERED: PT OWN MED DRAWER 7, Y5N ONE (08:39)
[2020-04-12] MEDS: LIDOCAINE 5% TOPICAL PATCH TP SCH (10:21)
[2020-04-12] MEDS: NICOTINE 7 MG/24 HOURS TOPICAL PATCH TD SCH (10:21)
[2020-04-12] MEDS: METHOCARBAMOL 500 MG TABLET PO SCH ×4 (10:21→21:24)
[2020-04-12] MEDS: PRENATAL VITAMINS W/ FOLIC ACID TABLET (FP) PO SCH (10:21)
[2020-04-12] MEDS: hydrOXYzine PAMOATE 25 MG CAPSULE (FP) PO PRN (10:22)
[2020-04-12] MEDS: NICOTINE POLACRILEX 2 MG GUM BUC PRN (14:52)
[2020-04-12] MEDS: MELATONIN 5 MG TABLETS PO SCH (21:24)
[2020-04-12] MEDS: THIAMINE HCL 100 MG TABLET (FP) PO SCH (21:24)
[2020-04-12] MEDS: LIDOCAINE PATCH REMOVAL MC SCH (21:25)
[2020-04-13] MEDS ORDERED: METHADONE HCL 40 MG DISPERSABLE TABLET ONE (05:35)
[2020-04-13] MEDS ORDERED: METHADONE HCL 10 MG TABLET ONE (05:35)
[2020-04-13] MEDS: METHADONE 80 MG, METHADONE 10 MG PO SCH (05:53)
[2020-04-13] MEDS: hydrOXYzine PAMOATE 25 MG CAPSULE (FP) PO PRN ×2 (09:42→21:50)
[2020-04-13] MEDS: PRENATAL VITAMINS W/ FOLIC ACID TABLET (FP) PO SCH (09:42)
[2020-04-13] MEDS: LIDOCAINE 5% TOPICAL PATCH TP SCH (09:42)
[2020-04-13] MEDS: METHOCARBAMOL 500 MG TABLET PO SCH ×4 (09:42→21:50)
[2020-04-13] MEDS: NICOTINE 7 MG/24 HOURS TOPICAL PATCH TD SCH (09:42)
[2020-04-13] MEDS: NICOTINE POLACRILEX 2 MG GUM BUC PRN (09:43)
[2020-04-13] MEDS: LIDOCAINE PATCH REMOVAL MC SCH (21:50)
[2020-04-13] MEDS: MELATONIN 5 MG TABLETS PO SCH (21:50)
[2020-04-13] MEDS: THIAMINE HCL 100 MG TABLET (FP) PO SCH (21:50)
[2020-04-14] MEDS ORDERED: METHADONE HCL 40 MG DISPERSABLE TABLET ONE (04:39)
[2020-04-14] MEDS ORDERED: METHADONE HCL 10 MG TABLET ONE (04:40)
[2020-04-14] MEDS: METHADONE 80 MG, METHADONE 10 MG PO SCH (05:56)
[2020-04-14] MEDS: PRENATAL VITAMINS W/ FOLIC ACID TABLET (FP) PO SCH (10:00)
[2020-04-14] MEDS: hydrOXYzine PAMOATE 25 MG CAPSULE (FP) PO PRN ×2 (10:01→21:10)
[2020-04-14] MEDS: LIDOCAINE 5% TOPICAL PATCH TP SCH (10:01)
[2020-04-14] MEDS: METHOCARBAMOL 500 MG TABLET PO SCH ×4 (10:01→21:09)
[2020-04-14] MEDS: NICOTINE POLACRILEX 2 MG GUM BUC PRN ×2 (10:02→21:10)
[2020-04-14] MEDS: NICOTINE 7 MG/24 HOURS TOPICAL PATCH TD SCH (10:02)
[2020-04-14] MEDS: THIAMINE HCL 100 MG TABLET (FP) PO SCH (21:09)
[2020-04-14] MEDS: MELATONIN 5 MG TABLETS PO SCH (21:10)
[2020-04-14] MEDS: LIDOCAINE PATCH REMOVAL MC SCH (22:19)
[2020-04-15] MEDS ORDERED: METHADONE HCL 40 MG DISPERSABLE TABLET ONE (03:06)
[2020-04-15] MEDS ORDERED: METHADONE HCL 10 MG TABLET ONE (03:06)
[2020-04-15] MEDS: METHADONE 80 MG, METHADONE 10 MG PO SCH (06:13)
--- NOTE | 2020-04-15 09:08 | PN ---
[facility] Progress Note Note: Vital Signs Temperature 98.0 F 04/15/20 06:07 Pulse Rate 63 04/14/20 05:50 Respiratory Rate 20 04/14/20 05:50 Blood Pressure 102/71 04/14/20 05:50 O2 Sat by Pulse Oximetry (%) 98 04/15/20 06:07 Laboratory Tests 03/30/20 06:00 HIV Ag/Ab Combo Qual Negative Labs reviewed with patient and results explained. No further intervention required at this time.
[2020-04-15] MEDS: METHOCARBAMOL 500 MG TABLET PO SCH ×4 (10:04→21:02)
[2020-04-15] MEDS: PRENATAL VITAMINS W/ FOLIC ACID TABLET (FP) PO SCH (10:04)
[2020-04-15] MEDS: hydrOXYzine PAMOATE 25 MG CAPSULE (FP) PO PRN ×3 (10:04→21:02)
[2020-04-15] MEDS: NICOTINE 7 MG/24 HOURS TOPICAL PATCH TD SCH (10:05)
[2020-04-15] MEDS: LIDOCAINE 5% TOPICAL PATCH TP SCH (10:05)
[2020-04-15] MEDS: LIDOCAINE PATCH REMOVAL MC SCH (21:01)
[2020-04-15] MEDS: THIAMINE HCL 100 MG TABLET (FP) PO SCH (21:02)
[2020-04-15] MEDS: MELATONIN 5 MG TABLETS PO SCH (21:03)
[2020-04-16] MEDS ORDERED: METHADONE HCL 10 MG TABLET ONE (04:35)
[2020-04-16] MEDS ORDERED: METHADONE HCL 40 MG DISPERSABLE TABLET ONE (04:35)
[2020-04-16] MEDS: METHADONE 80 MG, METHADONE 10 MG PO SCH (05:59)
[2020-04-16] MEDS: LIDOCAINE 5% TOPICAL PATCH TP SCH (10:11)
[2020-04-16] MEDS: PRENATAL VITAMINS W/ FOLIC ACID TABLET (FP) PO SCH (10:12)
[2020-04-16] MEDS: METHOCARBAMOL 500 MG TABLET PO SCH ×4 (10:12→21:10)
[2020-04-16] MEDS: NICOTINE 7 MG/24 HOURS TOPICAL PATCH TD SCH (10:12)
[2020-04-16] MEDS: hydrOXYzine PAMOATE 25 MG CAPSULE (FP) PO PRN ×2 (10:12→21:10)
[2020-04-16] MEDS: NICOTINE POLACRILEX 2 MG GUM BUC PRN (18:09)
[2020-04-16] MEDS: THIAMINE HCL 100 MG TABLET (FP) PO SCH (21:10)
[2020-04-16] MEDS: MELATONIN 5 MG TABLETS PO SCH (21:10)
[2020-04-16] MEDS: LIDOCAINE PATCH REMOVAL MC SCH (21:10)
[2020-04-17] MEDS ORDERED: METHADONE HCL 10 MG TABLET ONE (05:14)
[2020-04-17] MEDS ORDERED: METHADONE HCL 40 MG DISPERSABLE TABLET ONE (05:14)
[2020-04-17] MEDS: METHADONE 80 MG, METHADONE 10 MG PO SCH (05:56)
[2020-04-17] MEDS: LIDOCAINE 5% TOPICAL PATCH TP SCH (10:20)
[2020-04-17] MEDS: METHOCARBAMOL 500 MG TABLET PO SCH ×4 (10:20→21:55)
[2020-04-17] MEDS: hydrOXYzine PAMOATE 25 MG CAPSULE (FP) PO PRN ×3 (10:20→21:55)
[2020-04-17] MEDS: NICOTINE 7 MG/24 HOURS TOPICAL PATCH TD SCH (10:20)
[2020-04-17] MEDS: PRENATAL VITAMINS W/ FOLIC ACID TABLET (FP) PO SCH (10:20)
[2020-04-17] MEDS: NICOTINE POLACRILEX 2 MG GUM BUC PRN (14:32)
[2020-04-17] MEDS: LIDOCAINE PATCH REMOVAL MC SCH (21:55)
[2020-04-17] MEDS: MELATONIN 5 MG TABLETS PO SCH (21:55)
[2020-04-17] MEDS: THIAMINE HCL 100 MG TABLET (FP) PO SCH (21:55)
[2020-04-18] MEDS ORDERED: METHADONE HCL 10 MG TABLET ONE (04:07)
[2020-04-18] MEDS ORDERED: METHADONE HCL 40 MG DISPERSABLE TABLET ONE (04:07)
[2020-04-18] MEDS: METHADONE 80 MG, METHADONE 10 MG PO SCH (06:02)
[2020-04-18] MEDS: METHOCARBAMOL 500 MG TABLET PO SCH ×4 (09:53→21:10)
[2020-04-18] MEDS: hydrOXYzine PAMOATE 25 MG CAPSULE (FP) PO PRN ×3 (09:53→21:10)
[2020-04-18] MEDS: NICOTINE 7 MG/24 HOURS TOPICAL PATCH TD SCH (09:53)
[2020-04-18] MEDS: LIDOCAINE 5% TOPICAL PATCH TP SCH (09:53)
[2020-04-18] MEDS: PRENATAL VITAMINS W/ FOLIC ACID TABLET (FP) PO SCH (09:53)
[2020-04-18] MEDS: NICOTINE POLACRILEX 2 MG GUM BUC PRN ×3 (09:53→21:10)
[2020-04-18] MEDS: THIAMINE HCL 100 MG TABLET (FP) PO SCH (21:10)
[2020-04-18] MEDS: MELATONIN 5 MG TABLETS PO SCH (21:10)
[2020-04-18] MEDS: LIDOCAINE PATCH REMOVAL MC SCH (21:10)
[2020-04-19] MEDS ORDERED: METHADONE HCL 10 MG TABLET ONE (05:35)
[2020-04-19] MEDS ORDERED: METHADONE HCL 40 MG DISPERSABLE TABLET ONE (05:35)
[2020-04-19] MEDS: METHADONE 80 MG, METHADONE 10 MG PO SCH (06:02)
[2020-04-19] MEDS: PRENATAL VITAMINS W/ FOLIC ACID TABLET (FP) PO SCH (09:42)
[2020-04-19] MEDS: METHOCARBAMOL 500 MG TABLET PO SCH ×4 (09:42→21:38)
[2020-04-19] MEDS: hydrOXYzine PAMOATE 25 MG CAPSULE (FP) PO PRN ×2 (09:42→21:38)
[2020-04-19] MEDS: NICOTINE POLACRILEX 2 MG GUM BUC PRN ×2 (09:43→16:43)
[2020-04-19] MEDS: LIDOCAINE 5% TOPICAL PATCH TP SCH (10:02)
[2020-04-19] MEDS: NICOTINE 7 MG/24 HOURS TOPICAL PATCH TD SCH (10:02)
[2020-04-19] MEDS: THIAMINE HCL 100 MG TABLET (FP) PO SCH (21:37)
[2020-04-19] MEDS: MELATONIN 5 MG TABLETS PO SCH (21:38)
[2020-04-19] MEDS: LIDOCAINE PATCH REMOVAL MC SCH (21:38)
[2020-04-20] MEDS ORDERED: METHADONE HCL 40 MG DISPERSABLE TABLET ONE (04:05)
[2020-04-20] MEDS ORDERED: METHADONE HCL 10 MG TABLET ONE (04:06)
[2020-04-20] MEDS: METHADONE 80 MG, METHADONE 10 MG PO SCH (06:03)
[2020-04-20] MEDS: PRENATAL VITAMINS W/ FOLIC ACID TABLET (FP) PO SCH (09:59)
[2020-04-20] MEDS: NICOTINE 7 MG/24 HOURS TOPICAL PATCH TD SCH (09:59)
[2020-04-20] MEDS: LIDOCAINE 5% TOPICAL PATCH TP SCH (09:59)
[2020-04-20] MEDS: METHOCARBAMOL 500 MG TABLET PO SCH ×4 (09:59→22:52)
[2020-04-20] MEDS: NICOTINE POLACRILEX 2 MG GUM BUC PRN ×2 (10:00→21:14)
[2020-04-20] MEDS: LIDOCAINE PATCH REMOVAL MC SCH (21:13)
[2020-04-20] MEDS: MELATONIN 5 MG TABLETS PO SCH (21:13)
[2020-04-20] MEDS: THIAMINE HCL 100 MG TABLET (FP) PO SCH (21:13)
[2020-04-21] MEDS ORDERED: METHADONE HCL 40 MG DISPERSABLE TABLET ONE (06:09)
[2020-04-21] MEDS ORDERED: METHADONE HCL 10 MG TABLET ONE (06:09)
[2020-04-21] MEDS: METHADONE 80 MG, METHADONE 10 MG PO SCH (06:10)
[2020-04-21] MEDS: PRENATAL VITAMINS W/ FOLIC ACID TABLET (FP) PO SCH (09:49)
[2020-04-21] MEDS: LIDOCAINE 5% TOPICAL PATCH TP SCH (09:49)
[2020-04-21] MEDS: METHOCARBAMOL 500 MG TABLET PO SCH ×4 (09:49→21:04)
[2020-04-21] MEDS: NICOTINE 7 MG/24 HOURS TOPICAL PATCH TD SCH (09:49)
[2020-04-21] MEDS: NICOTINE POLACRILEX 2 MG GUM BUC PRN (09:50)
[2020-04-21] MEDS: LIDOCAINE PATCH REMOVAL MC SCH (21:03)
[2020-04-21] MEDS: MELATONIN 5 MG TABLETS PO SCH (21:03)
[2020-04-21] MEDS: THIAMINE HCL 100 MG TABLET (FP) PO SCH (21:03)
[2020-04-22] MEDS ORDERED: METHADONE HCL 40 MG DISPERSABLE TABLET ONE (05:20)
[2020-04-22] MEDS ORDERED: METHADONE HCL 10 MG TABLET ONE (05:20)
[2020-04-22] MEDS: METHADONE 80 MG, METHADONE 10 MG PO SCH (06:16)
[2020-04-22 06:39] VITALS: BP 155/82; PULSE 72; TEMP 97.8
--- NOTE | 2020-04-22 09:27 | DS ---
[facility] Rehab Discharge Summary - [facility] Rehab Discharge Summary Admission Date: 03/29/20 Discharge Date: 04/22/20 - History Present History: Alcohol dependence, Cocaine dependence, MMTP - Discharge Physical Exam Vital Signs: Vital Signs Temperature 97.8 F 04/22/20 06:17 Pulse Rate 72 04/22/20 06:17 Respiratory Rate 18 04/22/20 06:17 Blood Pressure 155/82 04/22/20 06:17 O2 Sat by Pulse Oximetry (%) 96 04/22/20 06:17 Laboratory Tests 03/30/20 04/19/20 06:00 10:30 COVID-19 (ERIC) Not detected HIV Ag/Ab Combo Qual Negative ROS: DENIES OPIOD/ALCOHOL CRAVINGS, SHAKES, SWEATS AND BODY ACHES PE: ALERT AND ORIENTED X 3 SKIN WARM AND DRY +PERRLA, EOMS INTACT BL GI ND, NT EXT FULL ROM, AMB AD RACHAEL NO TREMORS DENIES SI/HI A/P ALCOHOL DEPENDENCE MMTP COCAINE DEPENDENCE PATIENT IS MEDICALLY STABLE FOR D/C AFTERCARE ARRANGED FOR [facility] - Treatment Discharge Condition: Discharge condition good Hospital Course: PATIENT COMPLETED REHAB TODAY FOR ALCOHOL/COCAINE DEPENDENCE. HE IS MEDICALLY STABLE AND DENIES SI/HI. DURING COURSE OF TREATMENT, PATIENT ATTENDED GROUP MEETINGS AND 1:1 SESSION WITH COUNSELING STAFF. AFTERCARE ARRANGED FOR [facility] AND INTAKE APPT SCHEDULED FOR LATER TODAY. PATIENT IS MOTIVATED TO MAINTAIN SOBRIETY AND MEDICALLY ADVISED TO F/U WITH PCP RECOMMENDED. Ambulatory Orders NK [No Known Home Medication] 03/25/20 - Medication Discharge Medications: Ambulatory Orders NK [No Known Home Medication] 03/25/20 - Medication-Assisted Treatment (MAT) Medication-Assisted Treatment (MAT): Yes MAT Follow-up Referral: MMTP PROGRAM AND [facility] - Discharge Instructions Diet, activity, other medical instructions: Diet: REG Activity: TOLERATED Other medical instructions: F/U WITH PCP RECOMMENDED - Follow-up Referral Minutes to complete discharge: 40 - AMA Did Patient Leave Against Medical Advice: No
[2020-04-22] MEDS: hydrOXYzine PAMOATE 25 MG CAPSULE (FP) PO PRN (09:32)
[2020-04-22] MEDS: METHOCARBAMOL 500 MG TABLET PO SCH (09:32)
[2020-04-22] MEDS: PRENATAL VITAMINS W/ FOLIC ACID TABLET (FP) PO SCH (09:32)
[2020-04-22] MEDS: LIDOCAINE 5% TOPICAL PATCH TP SCH (09:34)
[2020-04-22] MEDS: NICOTINE 7 MG/24 HOURS TOPICAL PATCH TD SCH (09:34)
== END 2020-04-22 09:45 | disposition home or self-care (01) | DRG 772 ==
LOC: YASAS 11:11 → Y3W 11:13
PROVIDERS: ADMIT Allergy & Immunology; ATTEND Allergy & Immunology
PROC: HZ42ZZZ Group Counseling for Substance Abuse Treatment, Cognitive-Behavioral (ICD-10-PCS; principal; 2020-03-29)
DX: F10.20 Alcohol dependence, uncomplicated (principal); F11.20 Opioid dependence, uncomplicated; F14.20 Cocaine dependence, uncomplicated; M54.5 Low back pain; R60.0 Localized edema
CPT/HCPCS: 36415; 87389; 90732; G0009; U0003